=== PATIENT | male | born 1980 | race Caucasian/White ===

== ENCOUNTER 2021-09-22 13:40 | Emergency (ER) | payer OTHER ==
[~2021-09-22] VITALS: Ht 162.6 cm; Wt 70.3 kg
[2021-09-22 14:23] LABS: BASOPHILS % (AUTO) 0.1 % (0.0-5.0); EOSINOPHILS % (AUTO) 0.2 % (0.0-8.0); HEMATOCRIT 43.1 % (42-54); MEAN CORPUSCULAR HEMOGLOBIN 30.7 pg (27.0-33.0); MEAN CORPUSCULAR HGB CONC 35.5 g/dL (32.0-36.0); MEAN CORPUSCULAR VOLUME 86.5 fL (79-99); MONOCYTES % (AUTO) 6.3 % (3.0-13.0); NEUTROPHILS % (AUTO) 85.8 % (40.0-77.0); PLATELET COUNT (AUTO) 256 K/uL (130-400); RED BLOOD CELL COUNT(AUTO) 4.98 MIL/uL (4.50-6.20); RED CELL DISTRIBUTION WIDTH 12.7 % (11.0-15.5); WHITE BLOOD COUNT (AUTO) 13.6 K/uL (4.8-10.8)
[2021-09-22 14:53] LABS: ALBUMIN 4.2 g/dL (3.5-5.0); BILIRUBIN,TOTAL 0.5 mg/dL (0.2-1.0); CREATININE 0.9 mg/dL (0.5-1.5); POTASSIUM 3.8 mmol/L (3.5-5.1); TOTAL PROTEIN, SERUM 7.7 g/dL (6.0-8.3)
[2021-09-22 15:17] LABS: BILIRUBIN,URINE Negative (NEGATIVE); COLOR,URINE Yellow (YELLOW); GLUCOSE, URINE (UA) Negative (NEGATIVE); KETONES,URINE 15 mg/dL (NEGATIVE); LEUKOCYTE ESTERASE ,URINE Trace (NEGATIVE); NITRATE,URINE Negative (NEGATIVE); OCCULT BLOOD,URINE Negative (NEGATIVE); PH,URINE 8.5 (5.0-8.0); PROTEIN,URINE Negative (NEGATIVE); UROBILINOGEN,URINE 0.2 mg/dL (0.2-1.0)
[2021-09-22 15:18] LABS: APPEARANCE,URINE CLOUDY (CLEAR)
[2021-09-22 15:25] LABS: AMPHET/METH SCREEN,URINE NEGATIVE (NEGATIVE); BARBITURATE SCREEN, URINE NEGATIVE (NEGATIVE); BENZODIAZEPINES SCREEN,URINE NEGATIVE (NEGATIVE); CANNABINOID SCREEN,URINE NEGATIVE (NEGATIVE); COCAINE SCREEN,URINE NEGATIVE (NEGATIVE); OPIATE SCREEN,URINE NEGATIVE (NEGATIVE); PHENCYCLIDINE SCREEN,URINE NEGATIVE (NEGATIVE)
[2021-09-22 15:32] VITALS: BP 134/77
[2021-09-22 15:50] LABS: BACTERIA,URINE Few /HPF (None Seen); RBC,URINE 0-1 /HPF (0-1); SQUAMOUS EPITHELIAL CELL,UR Rare /HPF (0-2)
[2021-09-22 15:52] LABS: AMORPHOUS SEDIMENT,UR Few /LPF (None Seen)
[2021-09-22] MEDS ORDERED: FAMOTIDINE 20MG VIAL IV ONE (16:00)
[2021-09-22] MEDS ORDERED: ONDANSETRON 4MG INJ IVP ONE (16:00)
[2021-09-22] MEDS ORDERED: DICYCLOMINE HCL 10 MG/5 ML ML PO ONE (16:00)
[2021-09-22] MEDS ORDERED: MAG/ALUM/SIMETH 30 ML UDCUP PO ONE (16:00)
[2021-09-22] MEDS ORDERED: LACTATED RINGERS 1000ML 1,000 ML IV ONE (16:00)
[2021-09-22] MEDS ORDERED: LIDOCAINE HCL 2% VISCOUS 15 ML UDCUP PO ONE (16:00)
[2021-09-22] MEDS ORDERED: PHENAZOPYRIDINE HCL 200 MG TABLET PO ONE (16:30)
[2021-09-22] MEDS ORDERED: CEFTRIAXONE 1G VIAL IVP ONE (16:30)
[2021-09-22] MEDS ORDERED: CEPH500B PO (16:59)
[2021-09-22] MEDS ORDERED: DICY20TA2 PO (16:59)
== END 2021-09-22 17:15 | disposition home or self-care (01) ==
LOC: EDH 13:40
DX: N39.0 Urinary tract infection, site not specified (principal)
CPT/HCPCS: 36415; 76705; 80053; 80305; 81001; 82150; 83690; 84484; 85025; 96361; 96374; 96375; 99284; J0696; J2405; J3490; J7120

== ENCOUNTER 2022-09-20 03:27 | Emergency (ER) | payer OTHER, SELFPAY ==
[~2022-09-20] VITALS: Ht 162.6 cm; Wt 75.3 kg
[~2022-09-20 03:27] MED LIST: CEPH500B PO; DICY20TA2 PO
[2022-09-20] MEDS ORDERED: MORPHINE 4 MG SYG ONE (03:34)
[2022-09-20] MEDS ORDERED: ONDANSETRON 4MG INJ ONE (03:34)
[2022-09-20 03:53] LABS: BASOPHILS % (AUTO) 0.3 % (0.0-5.0); EOSINOPHILS % (AUTO) 0.6 % (0.0-8.0); HEMATOCRIT 44.3 % (42-54); LYMPHOCYTES % (AUTO) 16.3 % (21.0-51.0); MEAN CORPUSCULAR HEMOGLOBIN 30.4 pg (27.0-33.0); MEAN CORPUSCULAR HGB CONC 34.8 g/dL (32.0-36.0); MEAN CORPUSCULAR VOLUME 87.4 fL (79-99); MONOCYTES % (AUTO) 7.9 % (3.0-13.0); NEUTROPHILS % (AUTO) 74.7 % (40.0-77.0); PLATELET COUNT (AUTO) 230 K/uL (130-400); RED BLOOD CELL COUNT(AUTO) 5.07 MIL/uL (4.50-6.20); RED CELL DISTRIBUTION WIDTH 12.5 % (11.0-15.5); WHITE BLOOD COUNT (AUTO) 8.7 K/uL (4.8-10.8)
[2022-09-20] MEDS ORDERED: 0.9%NACL 1000ML 1,000 ML IV ONE (04:00)
[2022-09-20] MEDS ORDERED: MORPHINE 4 MG SYG IVP ONE (04:00)
[2022-09-20] MEDS ORDERED: ONDANSETRON 4MG INJ IVP ONE (04:00)
[2022-09-20 04:05] LABS: CREATININE 1.1 mg/dL (0.5-1.5); POTASSIUM 4.4 mmol/L (3.5-5.1)
[2022-09-20 04:09] LABS: ALBUMIN 4.2 g/dL (3.5-5.0); TOTAL PROTEIN, SERUM 7.7 g/dL (6.0-8.3)
[2022-09-20] MEDS ORDERED: LIDOCAINE HCL 2% VISCOUS 15 ML UDCUP PO ONE (04:30)
[2022-09-20] MEDS ORDERED: MAG/ALUM/SIMETH 30 ML UDCUP PO ONE (04:30)
[2022-09-20] MEDS ORDERED: DICYCLOMINE HCL 10 MG/5 ML ML PO ONE (04:30)
[2022-09-20] MEDS ORDERED: SUCRALFATE 1 GM TABLET PO SCH (05:00)
[2022-09-20] MEDS ORDERED: MORPHINE 2 MG SYG ONE (05:21)
[2022-09-20] MEDS ORDERED: MORPHINE 2 MG SYG IVP ONE (05:30)
[2022-09-20 05:32] LABS: APPEARANCE,URINE CLEAR (CLEAR); BILIRUBIN,URINE NEGATIVE (NEGATIVE); COLOR,URINE LIGHT-YELLOW (YELLOW); GLUCOSE, URINE (UA) NEGATIVE (NEGATIVE); KETONES,URINE NEGATIVE (NEGATIVE); LEUKOCYTE ESTERASE ,URINE NEGATIVE Leu/uL (NEGATIVE); NITRATE,URINE NEGATIVE (NEGATIVE); OCCULT BLOOD,URINE NEGATIVE (NEGATIVE); PH,URINE 5.5 (5.0-8.0); PROTEIN,URINE NEGATIVE (NEGATIVE); UROBILINOGEN,URINE 0.2 mg/dL (0.2-1.0)
[2022-09-20] MEDS ORDERED: IOHEXOL-350 75 ML VIAL IV ONE (05:32)
[2022-09-20 06:04] LABS: AMPHET/METH SCREEN,URINE NEGATIVE (NEGATIVE); BARBITURATE SCREEN, URINE NEGATIVE (NEGATIVE); BENZODIAZEPINES SCREEN,URINE NEGATIVE (NEGATIVE); CANNABINOID SCREEN,URINE NEGATIVE (NEGATIVE); COCAINE SCREEN,URINE NEGATIVE (NEGATIVE); OPIATE SCREEN,URINE NEGATIVE (NEGATIVE); PHENCYCLIDINE SCREEN,URINE NEGATIVE (NEGATIVE)
[2022-09-20] MEDS ORDERED: DICY20TA2 PO (08:13)
[2022-09-20] MEDS ORDERED: OXYC-38 PO (08:13)
[2022-09-20] MEDS ORDERED: ONDA4TAB10 PO (08:13)
[2022-09-20] MEDS ORDERED: ESOM40CA PO (08:13)
[2022-09-20] MEDS ORDERED: PANTOPRAZOLE 40 MG/VIAL IV SCH (08:30)
[2022-09-20 08:45] VITALS: BP 136/68
[2022-09-20] MEDS ORDERED: HYDR-4068 PO (16:54)
== END 2022-09-20 08:46 | disposition home or self-care (01) ==
LOC: EDH 03:27
DX: R10.13 Epigastric pain (principal)
CPT/HCPCS: 99285; 74177; 96374; 76705; 96375; 84484; 80053; 80305; 83690; 85025; 36415; 96376; 93005; 81003; J2270 ×2; J2405; C9113; Q9967